=== PATIENT | female | born 1975 | race Caucasian/White ===

== ENCOUNTER 2018-01-30 09:17 | Emergency (ER) | payer MEDICAID ==
[~2018-01-30] VITALS: Ht 177.8 cm; Wt 81.8 kg
[2018-01-30 09:23] VITALS: Ht 177.8 cm; Wt 81.8 kg
[2018-01-30 10:02] LABS: APPEARANCE HAZY (CLEAR); BILIRUBIN NEGATIVE (NEGATIVE); COLOR YELLOW (YELLOW); GLUCOSE NEGATIVE (NEGATIVE); KETONE NEGATIVE (NEGATIVE); NITRITE NEGATIVE (NEGATIVE); PH 5.5 (5.0-6.0); PROTEIN TRACE mg/dL (NEGATIVE); SPECIFIC GRAVITY 1.015 (1.005-1.020); UROBILINOGEN NORMAL (NORMAL)
[2018-01-30 10:04] LABS: HCG URINE NEGATIVE (NEGATIVE)
[2018-01-30 10:10] LABS: BACTERIA MODERATE /hpf (NONE SEEN); EPITHELIAL CELLS 0-5 /hpf (0-5); MUCUS >1+ /lpf (NONE SEEN); WHITE CELLS - URINE 0-5 /hpf (0-5)
[2018-01-30 10:11] LABS: HYALINE CAST 0-5 /lpf (NONE SEEN); WAXY CAST OCC /lpf (NONE SEEN)
[2018-01-30 10:23] LABS: BASOPHILS 0.1 % (0-2); EOSINOPHILS 3.1 % (0-7); HEMATOCRIT 34.1 % (36.0-48.0); HEMOGLOBIN 10.3 g/dL (12-16); IMMATURE GRANULOCYTES 0.1 % (0-5); LYMPHOCYTES 18.6 % (15-50); MCH 20.7 pg (26.0-34.0); MCHC 30.2 g/dL (31.0-37.0); MCV 68.5 fL (80.0-100.0); MEAN PLATELET VOLUME 9.1 fL (7.4-10.4); MONOCYTES 14.7 % (2-11); NEUTROPHILS 63.4 % (40-80); PLATELET COUNT 500 10x3/uL (130-400); RBC 4.98 10x6/uL (4.00-5.40); RDW 19.4 % (11.5-14.5)
[2018-01-30 10:38] LABS: ALBUMIN 3.4 g/dL (3.4-5.0); ALKALINE PHOSPHATASE 75 U/L (46-116); ALT (SGPT) 23 U/L (10-68); BILIRUBIN - TOTAL 0.21 mg/dL (0.2-1.3); CALC OSMOLALITY 277 mosm/kg (275-300); CARBON DIOXIDE 20.7 mmol/L (21.0-32.0); CHLORIDE - SERUM 104 mmol/L (98-107); CREATININE - SERUM 0.8 mg/dL (0.6-1.3); GLUCOSE 125 mg/dL (74-106); LIPASE 121 U/L (73-393); SODIUM 139 mmol/L (136-145); UREA NITROGEN 11 mg/dL (7-18); eGFR NON AFRICAN AMERICAN 83 mL/min (90-120)
[2018-01-30 10:43] LABS: POTASSIUM - SERUM 2.9 mmol/L (3.5-5.1)
[2018-01-30] MEDS ORDERED: LOPERAMIDE HCL2 MG PO (10:50)
[2018-01-30] MEDS ORDERED: FLAGYL500 MG PO (10:50)
[2018-01-30] MEDS ORDERED: ZOFRAN ODT4 MG/UDTAB PO (10:50)
[2018-01-30 11:50] VITALS: BP 126/61
== END 2018-01-30 11:50 | disposition home or self-care (01) ==
LOC: D.ER 09:17
PROVIDERS: Family Medicine
DX: K52.9 Noninfective gastroenteritis and colitis, unspecified (principal); E87.6 Hypokalemia; R11.10 Vomiting, unspecified; K92.1 Melena

== ENCOUNTER 2019-02-12 10:27 | Emergency (ER) | payer MEDICAID ==
[~2019-02-12] VITALS: Ht 177.8 cm; Wt 79.5 kg
[~2019-02-12 10:27] MED LIST: FLAGYL500 MG PO; LOPERAMIDE HCL2 MG PO; ZOFRAN ODT4 MG/UDTAB PO
[2019-02-12 10:40] VITALS: Ht 177.8 cm; Wt 79.5 kg
[2019-02-12 11:25] VITALS: BP 135/95
[2019-02-12] MEDS ORDERED: TAMIFLU75 MG PO (11:39)
== END 2019-02-12 12:03 | disposition home or self-care (01) ==
LOC: D.ER 10:27
DX: J10.1 Influenza due to other identified influenza virus with other respiratory manifestations (principal)